=== PATIENT | male | born 2000 | race Caucasian/White ===

== ENCOUNTER 2021-11-02 12:31 | Emergency (ER) | payer OTHER ==
[~2021-11-02] VITALS: Ht 175.3 cm; Wt 82.6 kg
[2021-11-02 13:04] VITALS: BP 118/70
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
[2021-11-02] MEDS ORDERED: KETOROLAC 30 MG/ML VIAL IM ONE (15:15)
[2021-11-02] MEDS ORDERED: IBUP-1842 PO (15:18)
[2021-11-02 15:39] VITALS: BP 124/70
== END 2021-11-02 15:40 | disposition home or self-care (01) ==
LOC: MED 12:31
DX: S13.9XXA Sprain of joints and ligaments of unspecified parts of neck, initial encounter (principal); S33.5XXA Sprain of ligaments of lumbar spine, initial encounter; S43.402A Unspecified sprain of left shoulder joint, initial encounter; R51.9 Headache, unspecified; R42 Dizziness and giddiness; Z79.899 Other long term (current) drug therapy; V89.2XXA Person injured in unspecified motor-vehicle accident, traffic, initial encounter; Y93.89 Activity, other specified; Y92.89 Other specified places as the place of occurrence of the external cause; Y99.8 Other external cause status
CPT/HCPCS: 72050; 72100; 73090; 96372; 99284; J1885

== ENCOUNTER 2021-12-26 14:44 | Emergency (ER) | payer OTHER ==
[~2021-12-26] VITALS: Ht 182.9 cm; Wt 80.7 kg
[~2021-12-26 14:44] MED LIST: IBUP-1842 PO
[2021-12-26 14:49] VITALS: BP 116/83
--- NOTE | 2021-12-26 15:20 | NUR ---
DR SMITH AT BEDSIDE.
--- NOTE | 2021-12-26 15:41 | NUR ---
LAB AT BEDSIDE.
[2021-12-26 15:49] LABS: APPEARANCE,URINE CLEAR (CLEAR); BILIRUBIN,URINE NEGATIVE (NEGATIVE); BLOOD, URINE 2+ (NEGATIVE); COLOR,URINE YELLOW (YELLOW); LEUKOCYTE ESTERASE ,URINE NEGATIVE (NEGATIVE); NITRITE, URINE NEGATIVE (NEGATIVE); UGLUCOSE NEGATIVE (NEGATIVE)
[2021-12-26 15:51] LABS: BASOPHILS % (AUTO) 0.4 % (0.0-2.0); EOSINOPHILS # (AUTO) 0.1 K/uL (0-0.4); EOSINOPHILS % (AUTO) 1.4 % (0.0-4.0); HEMOGLOBIN 15.1 g/dL (12.0-18.0); LYMPHOCYTES # (AUTO) 2.4 K/uL (2.0-11.5); LYMPHOCYTES % (AUTO) 25.9 % (20.5-51.1); MEAN CORPUSCULAR HEMOGLOBIN 30 pg (27-31); MEAN CORPUSCULAR HGB CONC 35 g/dL (33-37); MEAN CORPUSCULAR VOLUME 85.9 fL (80-94); MONOCYTES # (AUTO) 0.6 K/uL (0.8-1.0); MONOCYTES % (AUTO) 6.3 % (1.7-9.3); NEUTROPHILS # (AUTO) 6.1 K/uL (1.8-7.7); PLATELET COUNT (AUTO) 248 K/uL (140-450); RED CELL DISTRIBUTION WIDTH 13.1 % (11.6-13.7); WHITE BLOOD COUNT (AUTO) 9.2 K/uL (4.8-10.8)
[2021-12-26 16:03] LABS: RBC,URINE 0-5 /HPF (0-5); WBC,URINE NONE SEEN /HPF (0-5)
[2021-12-26 16:08] LABS: CARBON DIOXIDE 27.6 mmol/L (21-32); POTASSIUM 3.6 mmol/L (3.5-5.1)
--- NOTE | 2021-12-26 16:15 | NUR ---
ULTRASOUND AT BEDSIDE.
[2021-12-26] MEDS ORDERED: SULF-59 PO (17:57)
[2021-12-26] MEDS ORDERED: BACI1PAC6 TP (17:57)
[2021-12-26] MEDS ORDERED: CEPH-588 PO (17:57)
[2021-12-26 18:20] VITALS: BP 125/66
--- NOTE | 2021-12-26 18:20 | NUR ---
Patient discharged with v/s stable. Written and verbal after care instructions given and explained. Patient alert, oriented and verbalized understanding of instructions. Ambulatory with steady gait. All questions addressed prior to discharge. ID band removed. Patient advised to follow up with PMD. Rx of BACITRACIN ZINC, CEPHALEXIN, SULFAMERHOXAZOLE/TRIMETHOPRIM given. Opportunity to ask questions provided and answered.
--- NOTE | 2021-12-26 18:35 | NUR ---
The patient's care was reviewed and supervised by Amarilys Rossi, RN, RN.
== END 2021-12-26 18:20 | disposition home or self-care (01) ==
LOC: MED 14:44
DX: N49.2 Inflammatory disorders of scrotum (principal); N43.3 Hydrocele, unspecified; Z98.890 Other specified postprocedural states
CPT/HCPCS: 36415; 76870; 80048; 81001; 85025; 99284; Q0092